=== PATIENT | female | born 1950 | race American Indian/Alaskan Native ===

== ENCOUNTER 2017-12-13 09:55 | Observation (INO) | payer BC ==
[2017-12-13 09:55] VITALS: BMI 26.5
[2017-12-13 11:48] LABS: BASO # 0.02 K/mm3 (0.0-2.0); BASO % 0.3 % (0.0-3.0); EOS # 0.1 (0.0-0.7); EOS % 1.4 % (1.5-5.0); GRAN # 4.67 (1.4-6.5); GRAN % 71.1 % (50.0-68.0); HEMOGLOBIN 14.1 g/dL (12.0-16.0); LYMPH # 1.5 (1.2-3.4); LYMPH % 22.2 % (22.0-35.0); MEAN CORPUSCULAR HEMOGLOBIN 33.2 pg (25.0-35.0); MEAN CORPUSCULAR HGB CONC 36.1 g/dl (31.0-37.0); MEAN PLATELET VOLUME 9.7 fl (7.0-11.0); MONO # 0.3 (0.1-0.6); RBC 4.25 10^6/uL (3.5-6.1); RED CELL DISTRIBUTION WIDTH 12.9 % (11.5-14.5); WHITE BLOOD COUNT 6.6 10^3/ul (4.5-11.0)
[2017-12-13 11:54] LABS: ALB/GLOB RATIO 1.4 (1.1-1.8); ALBUMIN 4.1 g/dL (3.0-4.8); ALT/SGPT 46 U/L (7-56); AST/SGOT 34 U/L (14-36); BLOOD UREA NITROGEN 12 mg/dL (7-21); CALCIUM 8.7 mg/dL (8.4-10.5); GFR AFRICAN-AMERICAN > 60; GFR NON-AFRICAN AMERICAN > 60
[2017-12-13 11:58] LABS: INR 1.03 (0.93-1.08); PROTHROMBIN TIME 11.9 SECONDS (9.4-12.5)
[2017-12-13 11:59] LABS: PARTIAL THROMBOPLASTIN TIME 30.9 Seconds (25.1-36.5)
--- NOTE | 2017-12-13 11:59 | ED PDOC ---
Arrival/HPI - General Chief Complaint: Dizziness/Lightheaded Time Seen by Provider: 12/13/17 10:32 Historian: Patient - History of Present Illness Narrative History of Present Illness (Text): 12/13/17 10:45 Patient is a 67 year old female, with past medical history of hypertension and prior history reportedly of TIAs, presents to the Emergency department complaining of dizziness since this morning. Patient states she woke up this morning with sudden onset of dizziness described as room spinning when she turned her head in a particular direction. Patient denies any headache, speech difficulty, numbness/tingling in her arms or legs, visual changes or any other acute neurological changes. Patient denies any fever, chills, nausea, vomiting, diarrhea, abdominal pain, chest pain, shortness of breath or any other complaints. States initially that she has not been sick recently. Denies any new medication. Denies headache or neck pain. Time/Duration: Other (This morning) Symptom Onset: Sudden Symptom Course: Unchanged Activities at Onset: Light Context: Home Past Medical History - Provider Review Nursing Documentation Reviewed: Yes - Cardiac Hx Cardiac Disorders: Yes Hx Hypertension: Yes - Pulmonary Hx Respiratory Disorders: No - Neurological Hx Neurological Disorder: Yes Hx Transient Ischemic Attacks (TIA): Yes - HEENT Hx HEENT Disorder: No - Renal Hx Renal Disorder: No - Endocrine/Metabolic Hx Endocrine Disorders: No - Hematological/Oncological Hx Blood Disorders: No - Integumentary Hx Dermatological Disorder: No - Musculoskeletal/Rheumatological Hx Musculoskeletal Disorders: No - Gastrointestinal Hx Gastrointestinal Disorders: No - Genitourinary/Gynecological Hx Genitourinary Disorders: No - Psychiatric Hx Psychophysiologic Disorder: No Hx Substance Use: No - Surgical History Hx Orthopedic Surgery: Yes Family/Social History - Physician Review Nursing Documentation Reviewed: Yes Family/Social History: No Known Family HX Smoking Status: Never Smoked Hx Alcohol Use: No Hx Substance Use: No Allergies/Home Meds Allergies/Adverse Reactions: Allergies No Known Allergies Allergy (Verified 12/13/17 10:09) Home Medications: Home Meds Medication Instructions Recorded Confirmed Hydrochlorothiazide [HCTZ] 12.5 mg PO DAILY 10/04/15 12/13/17 Review of Systems - Review of Systems Constitutional: Fatigue. absent: Fevers Eyes: absent: Vision Changes, Photophobia, Eye Pain ENT: absent: Hearing Changes Respiratory: absent: SOB, Cough Cardiovascular: absent: Chest Pain, Edema, Calf Pain, AGUILAR Gastrointestinal: absent: Abdominal Pain, Diarrhea, Nausea, Vomiting, Hematochezia, Hematemesis Genitourinary Female: absent: Dysuria, Frequency Musculoskeletal: absent: Back Pain, Neck Pain Skin: absent: Rash Neurological: Dizziness, Disequilibrium. absent: Headache, Focal Weakness, Gait Changes, Speech Changes, Seizure Endocrine: absent: Polyuria, Polydipsia Hemo/Lymphatic: absent: Easy Bleeding Psychiatric: absent: Depression, Suicidal Ideation Physical Exam - Physical Exam Narrative Physical Exam (Text): 12/13/17 10:45 Head: Atraumatic. Normocephalic. Eyes: PERRL. EOMI. Conjunctivae are not pale. Visual acuity and alcocer intact. NO entrapment or proptosis. ENT: Mucous membranes are moist and intact. Oropharynx is clear and symmetric. TMs are clear with no erythema, no ear canal edema. Neck: Supple. Full ROM. No JVD. No lymphadenopathy. No auscultated carotid bruits. Cardiovascular: Regular rate. Regular rhythm. No murmurs, rubs, or gallops. Distal pulses are 2+ and symmetric. Pulmonary/Chest: No evidence of respiratory distress. Clear to auscultation bilaterally. No wheezing, rales or rhonchi. Abdominal: Soft and non-distended. There is no tenderness. No rebound, guarding, or rigidity. No organomegaly. Good bowel sounds. Back: No CVA tenderness. No midline tenderness. Extremities: No edema. No cyanosis. No clubbing. Full range of motion in all extremities. No calf tenderness. Skin: Skin is warm and dry. No petechiae. No purpura. Neurological: Alert, awake, and oriented to person, place, time, and situation. Normal speech. No facial droop. No aphasia. Motor strength intact. Sensory exam intact. She has symptoms of "spinning" reproduced by turning head. Psychiatric: Good eye contact. Normal interaction, affect, and behavior. Vital Signs Reviewed: Yes Vital Signs Temp Pulse Resp BP Pulse Ox 12/13/17 18:08 75 18 133/73 96 12/13/17 15:48 65 18 116/82 98 12/13/17 13:00 61 18 112/69 98 12/13/17 11:20 65 18 114/75 98 12/13/17 10:10 98.3 F 63 17 112/71 99 Temperature: Afebrile Blood Pressure: Normal Pulse: Regular Respiratory Rate: Normal Appearance: Positive for: Well-Appearing, Non-Toxic, Uncomfortable Pain Distress: Mild Mental Status: Positive for: Alert and Oriented X 3 Finger Stick Blood Glucose: 114 Medical Decision Making ED Course and Treatment: 12/13/17 10:45 Impression: 67 year old female presents to the Emergency department for sudden onset of dizziness since this morning. Differential Diagnosis included but are not limited to: Vertigo Plan: -- CT of Head -- EKG -- Labs -- Chest X-ray -- Antivert -- Reassess and disposition Prior Visits: Notes and results from previous visits were reviewed. Progress Notes: Patient states current symptoms are NOT similar to prior history of TIA. On exam , symptoms worse with turning head, "spinning". No headache, no chest pain, no focal motor or sensory deficits. Normal finger to nose. No dysmetria. Antivert given with improved but persistent symptoms. CT head ordered. 12/13/17 13:08 CT of Head reviewed by radiologist, shows: FINDINGS: HEMORRHAGE: No acute parenchymal, subarachnoid or extra-axial the intracranial hemorrhage. BRAIN: Minor chronic periventricular white matter ischemic changes. No obvious parenchymal nor extra-axial masses or collections seen on this noncontrast study. Mild age-appropriate volume loss. Mild vascular calcifications both carotid siphons. VENTRICLES: Unremarkable. No hydrocephalus. CALVARIUM: Unremarkable. PARANASAL SINUSES: Unremarkable as visualized. No significant inflammatory changes. MASTOID AIR CELLS: Unremarkable as visualized. No inflammatory changes. OTHER FINDINGS: Changes of left-sided cataract surgery. IMPRESSION: No acute intracranial hemorrhage. Mild chronic periventricular white matter ischemic changes. Mild age-appropriate volume loss 12/13/17 18:[address] reviewed with patient and family, although patient with serial exams, continues to have no focal weakness or dysmetria. Is able to ambulate. She is noted to be orthostatic on re-evaluation. Denies any change in her blood pressure medication. Continues to deny any chest pain or shortness of breath. IV fluid bolus given with slight improvement in BP. Will admit to telemetry observation to on-call physician service, Dr. Reese, for monitoring of symptoms and evaluation of orthostatsis. No pain with serial exams. No vomiting. No diarrhea. No fever. She later states that she has had dizziness for three days, states now with daughter present "I have acutally had this for three days not just today". She is agreeable to treatment plan and patient accepted by Dr. Reese to her service. - Lab Interpretations Lab Results: 12/13/17 11:30 12/13/17 11:30 Lab Results 12/13/17 11:30: POC Glucose (mg/dL) 114 H 12/13/17 11:30: PT 11.9, INR 1.03, APTT 30.9 12/13/17 11:30: Sodium 143, Potassium 3.5 L, Chloride 100, Carbon Dioxide 31, Anion Gap 14, BUN 12, Creatinine 0.8, Est GFR ( Amer) > 60, Est GFR (Non- Af Amer) > 60, Random Glucose 114 H, Calcium 8.7, Total Bilirubin 0.2, AST 34, ALT 46, Alkaline Phosphatase 157 H, Lactate Dehydrogenase 424, Total Creatine Kinase 63, Troponin I < 0.01, Total Protein 7.1, Albumin 4.1, Globulin 3.0, Albumin/Globulin Ratio 1.4 12/13/17 11:30: WBC 6.6, RBC 4.25, Hgb 14.1, Hct 39.1, MCV 92.0, MCH 33.2, MCHC 36.1, RDW 12.9, Plt Count 291, MPV 9.7, Gran % 71.1 H, Lymph % (Auto) 22.2, [place] % (Auto) 5.0, Eos % (Auto) 1.4 L, Baso % (Auto) 0.3, Gran # 4.67, Lymph # ( Auto) 1.5, [place] # (Auto) 0.3, Eos # (Auto) 0.1, Baso # (Auto) 0.02 - RAD Interpretation Radiology Orders: 12/13/17 10:52 HEAD W/O CONTRAST [CT] Stat CHEST ONE VIEW [RAD] Stat Dental Coordinator: Radiologist - EKG Interpretation EKG Interpretation (Text): 12/13/17 18:34 EKG at 1109 normal sinus rhythm rate of 65 with left axis deviation, moderate voltage criteria for lvh. nonspecific t wave abnormality Interpreted by ED Physician: Yes Type: 12 lead EKG - Medication Orders Current Medication Orders: Discontinued Medications Sodium Chloride (Sodium Chloride 0.9%) 500 mls @ 1,000 mls/hr IV .Q30M STA Stop: 12/13/17 14:22 Last Admin: 12/13/17 14:04 Dose: 1,000 mls/hr eMAR Start Stop Document 12/13/17 14:04 EQ (Rec: 12/13/17 14:04 EQ [facility]) Intravenous Solution Start Date 12/13/17 Start Time 14:04 Meclizine HCl (Antivert) 25 mg PO ONCE ONE Stop: 12/13/17 10:55 Last Admin: 12/13/17 11:22 Dose: 25 mg Potassium Chloride (K-Dur 20 Meq Er Tab) 20 meq PO STAT STA Stop: 12/13/17 13:54 Last Admin: 12/13/17 14:04 Dose: 20 meq - Scribe Statement The provider has reviewed the documentation as recorded by the Scribe Radha Kurtz. All medical record entries made by the Scribe were at my direction and personally dictated by me. I have reviewed the chart and agree that the record accurately reflects my personal performance of the history, physical exam, medical decision making, and the department course for this patient. I have also personally directed, reviewed, and agree with the discharge instructions and disposition. Disposition/Present on Arrival - Present on Arrival Any Indicators Present on Arrival: No History of DVT/PE: No History of Uncontrolled Diabetes: No Urinary Catheter: No History of Decub. Ulcer: No History Surgical Site Infection Following: None - Disposition Have Diagnosis and Disposition been Completed?: Yes Diagnosis: Dizziness, Vertigo, Orthostasis Disposition: HOSPITALIZED Disposition Time: 18:40 Patient Plan: Admission, Telemetry Condition: FAIR
[2017-12-13 12:05] LABS: TROPONIN I < 0.01 ng/mL
--- NOTE | 2017-12-13 13:02 | CT ---
PROCEDURE: CT HEAD WITHOUT CONTRAST. HISTORY: Dizziness COMPARISON: None available. TECHNIQUE: Axial computed tomography images were obtained through the head/brain without intravenous contrast. Radiation dose: Total exam DLP = 81.79 9 mGy-cm. This CT exam was performed using one or more of the following dose reduction techniques: Automated exposure control, adjustment of the mA and/or kV according to patient size, and/or use of iterative reconstruction technique. FINDINGS: HEMORRHAGE: No acute parenchymal, subarachnoid or extra-axial the intracranial hemorrhage. BRAIN: Minor chronic periventricular white matter ischemic changes. No obvious parenchymal nor extra-axial masses or collections seen on this noncontrast study. Mild age-appropriate volume loss. Mild vascular calcifications both carotid siphons. VENTRICLES: Unremarkable. No hydrocephalus. CALVARIUM: Unremarkable. PARANASAL SINUSES: Unremarkable as visualized. No significant inflammatory changes. MASTOID AIR CELLS: Unremarkable as visualized. No inflammatory changes. OTHER FINDINGS: Changes of left-sided cataract surgery. IMPRESSION: No acute intracranial hemorrhage. Mild chronic periventricular white matter ischemic changes. Mild age-appropriate volume loss
[2017-12-13] MEDS ORDERED: Sodium Chloride 0.9% 500 ML IV STA (13:53)
[2017-12-13] MEDS ORDERED: Potassium Chloride 20 mEq ER Tab PO STA (13:53)
--- NOTE | 2017-12-13 17:21 | RAD ---
PROCEDURE: CHEST RADIOGRAPH, 1 VIEW HISTORY: weakness COMPARISON: None available. FINDINGS: LUNGS: Poor inspiration with low lung volumes, crowded bronchovascular markings and mild bibasilar atelectasis PLEURA: No pneumothorax or pleural fluid seen. CARDIOVASCULAR: Cardiomegaly OSSEOUS STRUCTURES: No significant abnormalities. VISUALIZED UPPER ABDOMEN: Normal. OTHER FINDINGS: None. IMPRESSION: Poor inspiration with low lung volumes, crowded bronchovascular markings and mild bibasilar atelectasis
[2017-12-13] MEDS ORDERED: Pneumococcal 23-Valent Vaccine IM ONE (22:52)
[2017-12-14 06:51] VITALS: BP 114/67; RESP 19; TEMP 97.9; O2SAT 100
[2017-12-14 08:04] LABS: HDL CHOLESTEROL 42 mg/dL (29-60)
[2017-12-14 08:16] LABS: LDL CHOLESTEROL 116 mg/dL (0-129)
[2017-12-14 08:19] LABS: FREE T4 0.82 ng/dL (0.78-2.19)
[2017-12-14 10:42] VITALS: PULSE 71
--- NOTE | 2017-12-14 13:50 | CARD ---
APPROVED REPORT EKG Measurement Heart [id number] <Conclusion> Normal sinus rhythm Left axis deviation Moderate voltage criteria for LVH, may be normal variant Nonspecific T wave abnormality Abnormal ECG
--- NOTE | 2017-12-14 17:50 | US ---
PROCEDURE: Bilateral carotid artery duplex ultrasound HISTORY: Carotid stenosis PHYSICIAN(S): Jose Guadalupe Pascal MD. TECHNIQUE: Duplex sonography and color-flow Doppler were used to evaluate the carotid bifurcations and limited segments of the vertebral arteries bilaterally. FINDINGS: There is mild smooth hypoechoic plaque noted at the carotid bifurcations bilaterally. The peak systolic velocity in the proximal right internal carotid artery is 91 cm/sec. This corresponds to a 20 to 39% proximal right ICA stenosis. Normal systolic velocities are noted in the proximal right external carotid artery. There is antegrade flow in the right vertebral artery. The peak systolic velocity in the proximal left internal carotid artery is 92 cm/sec. This corresponds to a 20 to 39% proximal left ICA stenosis. Normal systolic velocities are noted in the proximal left external carotid artery. There is antegrade flow in the left vertebral artery. IMPRESSION: 1. Bilateral 20-39% proximal ICA stenoses. 2. Antegrade flow in both vertebral arteries.
--- NOTE | 2017-12-15 08:29 | HP ---
HISTORY OF PRESENT ILLNESS: This is a 67-year-old female who was coming to the hospital with complaints of dizziness. She states that when she moved her head towards the right, she had dizziness. She said this happened over the last few days. She would get out of bed and she would become dizzy. She also states when she turns her head to the right, she will become dizzy. She does have a history of TIA and hypertension. She has no complaints of any fevers or chills. No dysuria or frequency. No nocturia and no dysarthria, diplopia, no weakness in arms or the legs. She has no incontinence of bowel or bladder. She was able to get out of bed this morning and she was able to turn her head with no dizziness. She has no complaints of neck pain. She has no headaches. All other review of symptoms are within normal limits except that was mentioned. ALLERGIES: NO KNOWN DRUG ALLERGIES. HOME MEDICATIONS: Hydrochlorothiazide. SOCIAL HISTORY: She does not smoke. She denies drug use. PAST MEDICAL HISTORY: TIA and hypertension. FAMILY HISTORY: Noncontributory. PHYSICAL EXAMINATION VITAL SIGNS: Temperature is 97.9, pulse was 62, blood pressure 114/67, respirations 19, O2 saturation was 100%. Height is 5 feet 3 inches, weight is 150 pounds. BMI is 26.6. GENERAL: The patient lying in bed, uncomfortable, and in no acute distress. HEENT: Atraumatic and normocephalic. Anicteric sclerae. Moist mucosa. [place] conjunctivae. No oral lesions. NECK: No JVD, anterior and posterior adenopathy, thyromegaly, or bruits. CARDIOVASCULAR: S1 and S2 regular. No murmur, rubs, or gallop. LUNGS: Clear to auscultation bilaterally. No wheezes, rales, or rhonchi. ABDOMEN: Bowel sounds are positive. Soft, nontender and nondistended. No hepatosplenomegaly. No rebound and no guarding EXTREMITIES: No cyanosis, clubbing, or edema. NEUROLOGIC: No facial asymmetry. Tongue is midline. No uvula deviation. Power is 5/5 upper extremity and lower extremity. Sensation intact in upper extremity and lower extremity. PSYCHIATRIC: She is awake, alert and oriented x3. No anxiety or depression. She has normal affect. GENITOURINARY: No CVA tenderness. VASCULAR: 2+ pulses in the carotid pulses and pedal pulses. SKIN: No erythema or nodules SPINE: Shows normal curvature. LABORATORY DATA: Have been reviewed, white count of 6.6, INR is 1.03, potassium is 3.5. Troponin is 0.01. TSH is . CT of the head done shows no acute changes. Chest x-ray done shows poor inspiration, but no infiltrates. EKG done shows normal sinus rhythm at 65, QTc is 438, left axis deviation. ASSESSMENT: 1. Vertigo. 2. Hypertension. PLAN: The patient was given IV fluids. She was monitored overnight. She is going to be seen by Dr. Sosa as an outpatient. She says she has no more symptoms. I gave her meclizine as needed. She is going to be discharged home, to follow up as an outpatient with primary care doctor in 1 to [address] Sosa in 1 to 2 weeks. Tong Ponce MD
== END 2017-12-14 14:00 | disposition home or self-care (01) ==
LOC: ED 09:55 → ERH 16:33 → 3RNO 18:19
PROVIDERS: ADMIT Internal Medicine; ATTEND Internal Medicine
DX: R42 Dizziness and giddiness (principal); I10 Essential (primary) hypertension; Z86.73 Personal history of transient ischemic attack (TIA), and cerebral infarction without residual deficits
CPT/HCPCS: 36415; 70450; 71045; 80053; 80061; 82550; 82948; 83036; 83615; 84439; 84443; 84484; 85025; 85610; 85730; 93005; 93880; 99285; G0378; J7040